=== PATIENT | male | born 1995 | race Caucasian/White ===

== ENCOUNTER 2024-08-25 08:07 | Emergency (ER) | payer OTHER, SELFPAY ==
[2024-08-25 08:14] VITALS: BP 169/96; PULSE 90; RESP 16; O2SAT 96; BMI 35.4
--- NOTE | 2024-08-25 08:17 | CT_ITS ---
WS: [id number] CT HEAD TECHNIQUE: Noncontrast CT of the head obtained from the skullbase to the vertex. CLINICAL INFORMATION: worsening symptoms sub arachnoid COMPARISON: No available comparisons DLP: 1006.[address] scans at [facility] use at least one of these dose optimization techniques: automated e xposure control; mA and/or kV adjustment per patient size (includes targeted exams where dose is matc hed to clinical indication); or iterative reconstruction. FINDINGS: Tiny trace of subarachnoid hemorrhage in the RIGHT frontal lobe anteriorly. No evidence of intraparen chymal hematoma or mass effect. No extra-axial fluid collections. No hydrocephalus. No other acute fi ndings. Paranasal sinuses and mastoid air cells are well aerated. . CT/CT head wo con* [id number] IMPRESSION: 1. Tiny trace of subarachnoid hemorrhage in the RIGHT frontal lobe anteriorly. 2. No evidence of mass effect or midline shift. No hydrocephalus. 3. No other acute findings. Notified Franky Rose DO at 08/25/2024 9:16 AM.
[2024-08-25 08:35] VITALS: BP 169/96
--- NOTE | 2024-08-25 09:00 | ED_ITS ---
HPI - Head Injury General: Chief complaint: Head Injury Stated complaint: fall/head pain (4days ago) Time Seen by Provider: 08/25/24 08:17 History of Present Illness: 29-year-old male presents with known sub arachnoid bleed following a fall over the weekend. Patient comes in today because he says the pain feels just little bit worse or different and just wanted to be further evaluated make sure it has not worsened as he did not receive a repeat CT. Patient does not have any katey sea, vomiting or other systemic complaints. Associated symptoms: Deny nausea or vomiting Related Data Home Medications Medication Instructions Recorded Confirmed acetaminophen 325 mg tablet 325 mg PO QID PRN Pain 08/25/24 08/25/24 (Tylenol) hydrocodone 5 mg-acetaminophen 325 1 tab PO Q4H PRN Pain 08/25/24 08/25/24 mg tablet ondansetron HCl 4 mg tablet 4 mg PO Q8H PRN Nausea 08/25/24 08/25/24 oxycodone 5 mg tablet 5 mg PO Q4H PRN Pain (Scale Score 08/25/24 08/25/24 4-6) Allergies Allergy/AdvReac Type Severity Reaction Status Date / Time Sulfa (Sulfonamide Allergy Intermediate rash Verified 11/05/22 14:55 Antibiotics) Review of Systems Const: Reports: other (Please see HPI); Denies: fever(s) or chills Card: Denies: chest pain or palpitations Resp: Denies: dyspnea or productive cough GI: Denies: abdominal pain, nausea or vomiting Neuro: Reports: headache(s); Denies: dizziness Physical Exam Const: COMMON NORMALS: no acute distress and patient oriented x3 HENMT: OTHER: Sutures midline nasal well-healing, intact, no signs of infection, mild abrasions that are well-healing nose and forehead. Resp: COMMON NORMALS: normal respiratory effort and No retractions Cardio: COMMON NORMALS: regular rate and regular rhythm RATE: regular rate RHYTHM: regular rhythm GI: COMMON NORMALS: Soft to palpation and non-tender PALPATION: Yes Soft to palpation Neuro: COMMON NORMALS: patient oriented x3, moves all extremities, no focal motor deficits and no sensory deficits noted Psych: COMMON NORMALS: mental status grossly normal, Normal thought process present, cooperative, normal affect and speech normal SPEECH: Yes normal speech THOUGHT PROCESS: Normal thought process present Course Vital Signs: Vital signs: Vital Signs Temperature 98.1 F 08/25/24 09:39 Pulse Rate 79 08/25/24 10:26 Respiratory Rate 16 08/25/24 08:14 Blood Pressure 135/92 08/25/24 10:26 Pulse Oximetry 95 08/25/24 10:26 Oxygen Delivery Me thod Room Air 08/25/24 10:26 MDM - Head Injury Medcial Decision Making Patient's CT shows a small subarachnoid that was known from his previous fall. Does not show any expanding hematoma or other acute changes. Discussed findings with patient. He is stable and discharged home. He should follow-up with his outpatient team as needed. Lab Data Radiology Impressions Head CT 08/25/24 08:17 IMPRESSION: 1. Tiny trace of subarachnoid hemorrhage in the RIGHT frontal lobe anteriorly. 2. No evidence of mass effect or midline shift. No hydrocephalus. 3. No other acute findings. Notified Franky Rose DO at 08/25/2024 9:16 AM. All radiology interpretation(s) finalized by discharge Discharge Plan Discharge Patient Disposition: Home Clinical Impression: Subarachnoid hematoma Qualifiers: Encounter type: subsequent encounter Condition: Stable Prescriptions: No Action acetaminophen [Tylenol] 325 mg Tablet 325 mg PO QID PRN (Reason: Pain) hydrocodone-acetaminophen 5-325 mg tablet 1 tab PO Q4H PRN (Reason: Pain) ondansetron HCl 4 mg tablet 4 mg PO Q8H PRN (Reason: Nausea) oxycodone 5 mg tablet 5 mg PO Q4H PRN (Reason: Pain (Scale Score 4-6)) Discharge Orders: Discharge ED (Routine); Ordered 08/25/24 Ordered By: Franky Rose Referrals: Dajuan Fofana MD [Primary Care Provider] - Discharge Diet: Usual diet Discharge Activity: Increase activity as tolerated Patient Instructions: Subarachnoid Hemorrhage (DC), Opioid Safety, Pain Man agement Activity Restrictions/Additional Instructions: Please follow-up with your primary care provider as needed for continued follow- up. Return to the ER with any concerns peer Coding Level of Care Code ED [employer] for [employer]
[2024-08-25 09:19] VITALS: BP 135/78; PULSE 73; O2SAT 96
[2024-08-25 09:39] VITALS: TEMP 36.7
[2024-08-25 10:26] VITALS: BP 135/92; PULSE 79; O2SAT 95
[2024-08-25 10:54] VITALS: BP 131/74; PULSE 73; O2SAT 97
== END 2024-08-25 10:57 | disposition home or self-care (01) ==
PROVIDERS: Emergency Provider Student in an Organized Health Care Education/Training Program; PCP Family Medicine
DX: S06.6XAA Traumatic subarachnoid hemorrhage with loss of consciousness status unknown, initial encounter (principal); W19.XXXA Unspecified fall, initial encounter; S00.31XA Abrasion of nose, initial encounter; S00.81XA Abrasion of other part of head, initial encounter
CPT/HCPCS: 70450; 99284

== ENCOUNTER 2024-09-24 07:15 | Outpatient (CLI) | payer OTHER, SELFPAY ==
--- NOTE | 2024-09-24 07:15 | MR_ITS ---
WS: [id number] MRI BRAIN WITH AND WITHOUT CONTRAST HISTORY: R56.9 - Unspecified convulsions COMPARISON: CT head 08/25/2024 TECHNIQUE: Multiplanar imaging performed through the brain with MultiHance 20 ml's IV. No acute infarcts are seen. Tam-white matter differentiation is well preserved. No susceptibility artifacts or prior lacunar infarcts. Ventricles and extra-axial spaces are normal. Clivus and pituitary gland are normal. Visualized posterior fossa and brainstem are also normal. Postcontrast images are negative for masses or vascular malformations. Dural venous sinuses are normal. Paranasal sinuses: Well aerated with no significant disease. Mastoid air cells: Normal. Calvarium and scalp: Normal. MR/MR head wo/w con [id number] IMPRESSION: 1. Normal MRI brain with contrast. 2. No vascular malformations. No residual blood products in the RIGHT frontal lobe subarachnoid space. No acute hemorrhage.
[2024-09-24] MEDS: gadobenate dimeglumine 20 mL vial IV (08:10)
== END 2024-09-24 07:16 | disposition home or self-care (01) ==
LOC: RAD 07:15
PROVIDERS: PCP Family Medicine; Visit Provider Specialist
DX: R56.9 Unspecified convulsions (principal); S06.6XAA Traumatic subarachnoid hemorrhage with loss of consciousness status unknown, initial encounter; X58.XXXA Exposure to other specified factors, initial encounter
CPT/HCPCS: 70553